=== PATIENT | female | born 1950 | race Caucasian/White ===

== ENCOUNTER 2016-07-27 21:12 | Emergency (ER) | payer MEDICARE ==
[~2016-07-27] VITALS: Ht 167.6 cm; Wt 59.0 kg
[~2016-07-27 21:12] MED LIST: DAYPRO600 M1 PO; SKELAXIN800 MG PO; VICODIN 500 MG-1 TAB PO
[2016-07-27] MEDS ORDERED: ZITHROMAX250 MG PO (22:58)
[2016-07-27] MEDS ORDERED: MEDROL DOSEPAK4 MG PO (22:58)
== END 2016-07-27 23:02 | disposition home or self-care (01) ==
LOC: ED 21:12
DX: J20.9 Acute bronchitis, unspecified (principal); F17.200 Nicotine dependence, unspecified, uncomplicated

== ENCOUNTER 2019-07-07 08:07 | Emergency (ER) | payer MEDICARE ==
[~2019-07-07] VITALS: Ht 162.5 cm; Wt 72.6 kg
[~2019-07-07 08:07] MED LIST changes: +MEDROL DOSEPAK4 MG PO; +MUCINEX ER600 MG PO; +NICODERM T; +PREDNISONE10 MG PO; +PROAIR HFA8.5 GM INH; +ZITHROMAX250 MG PO
[2019-07-07 08:47] LABS: BASO # 0.1 10*3/uL (0.0-0.1); BASO % 0.8 % (0.0-1.0); EOS # 0.2 10*3/uL (0.0-0.4); EOS % 2.2 % (1.0-4.0); HEMATOCRIT 40.5 % (37.0-47.0); HEMOGLOBIN 13.1 g/dl (12.0-16.0); LYMPH # 2.1 10*3/uL (1.3-4.4); LYMPH % 23.8 % (27.0-41.0); MEAN CELL VOLUME 91.6 fl (81.0-99.0); MEAN CORPUSCULAR HGB 29.6 pg (27.0-31.0); MEAN CORPUSCULAR HGB CONC 32.3 g/dl (33.0-37.0); MEAN PLATELET VOLUME 9.1 fl (9.6-12.3); MONO # 0.7 10*3/uL (0.1-1.0); MONO % 7.7 % (3.0-9.0); NEUT # 5.8 10*3/uL (2.3-7.9); NEUT % 64.2 % (47.0-73.0); PLATELET COUNT AUTOMATED 361 10*3/uL (130-400); RED BLOOD COUNT 4.42 10*6/uL (4.10-5.10); RED CELL DISTRI WIDTH 12.2 % (0-14.5)
[2019-07-07 09:04] LABS: ALBUMIN 3.6 gm/dl (3.1-4.5); ALKALINE PHOSPHATASE 43 U/L (45-117); BUN 24 mg/dl (7-24); CHLORIDE 104 mmol/L (98-107); CREATININE 1.06 mg/dL (0.55-1.02); POTASSIUM 3.9 mmol/L (3.5-5.1); SGOT/AST 18 IU/L (3-35); SGPT/ALT 46 U/L (12-78); SODIUM 137 mmol/L (136-145); TOTAL PROTEIN 7.2 gm/dL (6.4-8.2)
[2019-07-07 09:06] LABS: TROPONIN I < 0.015 ng/ml (<0.045)
== END 2019-07-07 10:37 | disposition home or self-care (01) ==
LOC: ED 08:07
PROVIDERS: Family Medicine
DX: E86.0 Dehydration (principal); R42 Dizziness and giddiness; F17.210 Nicotine dependence, cigarettes, uncomplicated

== ENCOUNTER 2019-10-30 21:16 | Emergency (ER) | payer OTHER ==
[~2019-10-30] VITALS: Ht 162.5 cm; Wt 68.0 kg
[2019-10-30 22:53] LABS: BASO # 0.1 10*3/uL (0.0-0.1); BASO % 0.6 % (0.0-1.0); EOS # 0.2 10*3/uL (0.0-0.4); EOS % 2.2 % (1.0-4.0); HEMATOCRIT 36.4 % (37.0-47.0); LYMPH # 2.2 10*3/uL (1.3-4.4); LYMPH % 26.5 % (27.0-41.0); MEAN CELL VOLUME 89.4 fl (81.0-99.0); MEAN CORPUSCULAR HGB 29.5 pg (27.0-31.0); MEAN PLATELET VOLUME 8.9 fl (9.6-12.3); MONO # 0.7 10*3/uL (0.1-1.0); MONO % 8.1 % (3.0-9.0); NEUT % 61.6 % (47.0-73.0); PLATELET COUNT AUTOMATED 352 10*3/uL (130-400); RED BLOOD COUNT 4.07 10*6/uL (4.10-5.10); RED CELL DISTRI WIDTH 12.4 % (0-14.5); WHITE BLOOD COUNT 8.1 10*3/uL (4.8-10.8)
[2019-10-30 23:10] LABS: ALBUMIN 3.3 gm/dl (3.1-4.5); ALKALINE PHOSPHATASE 45 U/L (45-117); BUN 19 mg/dl (7-24); CHLORIDE 108 mmol/L (98-107); CREATININE 0.93 mg/dL (0.55-1.02); POTASSIUM 3.9 mmol/L (3.5-5.1); SGOT/AST 16 IU/L (3-35); SGPT/ALT 37 U/L (12-78); SODIUM 141 mmol/L (136-145); TOTAL PROTEIN 6.8 gm/dL (6.4-8.2)
== END 2019-10-30 23:51 | disposition home or self-care (01) ==
LOC: ED 21:16
PROVIDERS: Nurse Practitioner Family
DX: R60.0 Localized edema (principal); F17.200 Nicotine dependence, unspecified, uncomplicated; Z79.899 Other long term (current) drug therapy

== ENCOUNTER → 2019-11-12 | Outpatient (CLI) | payer OTHER | END | disposition home or self-care (01) | LOC: US 10:08 | DX: I70.202 Unspecified atherosclerosis of native arteries of extremities, left leg (principal); I77.1 Stricture of artery ==

== ENCOUNTER 2020-05-13 09:09 | Emergency (ER) | payer OTHER ==
[~2020-05-13] VITALS: Ht 167.6 cm; Wt 68.0 kg
[2020-05-13] MEDS ORDERED: ASPIRIN ADULT L81 M1 PO (09:31)
[2020-05-13] MEDS ORDERED: HYDROCODONE-AC1 EAC1 PO (13:15)
[2020-05-16] MEDS ORDERED: AMLODIPINE BESY10 MG PO (11:02)
[2020-05-16] MEDS ORDERED: LISINOPRIL-HCT1 EACH PO (11:03)
[2020-05-17] MEDS ORDERED: HYDROCODONE-AC1 EAC1 PO (11:59)
== END 2020-05-13 14:02 | disposition home or self-care (01) ==
LOC: ED 09:09
DX: S52.272A Monteggia's fracture of left ulna, initial encounter for closed fracture (principal); S52.122A Displaced fracture of head of left radius, initial encounter for closed fracture; S42.452A Displaced fracture of lateral condyle of left humerus, initial encounter for closed fracture; I10 Essential (primary) hypertension; F17.200 Nicotine dependence, unspecified, uncomplicated; Z20.822 Contact with and (suspected) exposure to COVID-19; Z79.82 Long term (current) use of aspirin; Z90.711 Acquired absence of uterus with remaining cervical stump; W18.09XA Striking against other object with subsequent fall, initial encounter; Y93.89 Activity, other specified; Y92.098 Other place in other non-institutional residence as the place of occurrence of the external cause; Y99.8 Other external cause status

== ENCOUNTER → 2020-05-17 | Day surgery (SDC) | payer OTHER ==
[2020-05-16 10:54] LABS: BASO # 0.1 10*3/uL (0.0-0.1); BASO % 0.8 % (0.0-1.0); EOS # 0.2 10*3/uL (0.0-0.4); EOS % 1.8 % (1.0-4.0); HEMATOCRIT 42.6 % (37.0-47.0); LYMPH # 2.4 10*3/uL (1.3-4.4); LYMPH % 21.6 % (27.0-41.0); MEAN CELL VOLUME 89.3 fl (81.0-99.0); MEAN CORPUSCULAR HGB 28.7 pg (27.0-31.0); MEAN CORPUSCULAR HGB CONC 32.2 g/dl (33.0-37.0); MEAN PLATELET VOLUME 9.2 fl (9.6-12.3); MONO # 0.8 10*3/uL (0.1-1.0); MONO % 7.1 % (3.0-9.0); NEUT # 7.6 10*3/uL (2.3-7.9); NEUT % 67.5 % (47.0-73.0); PLATELET COUNT AUTOMATED 439 10*3/uL (130-400); RED BLOOD COUNT 4.77 10*6/uL (4.10-5.10); RED CELL DISTRI WIDTH 12.5 % (0-14.5); WHITE BLOOD COUNT 11.3 10*3/uL (4.8-10.8)
[2020-05-16 11:02] VITALS: BP 123/49
[2020-05-16 11:18] LABS: BUN 21 mg/dl (7-24); CHLORIDE 102 mmol/L (98-107); CREATININE 0.73 mg/dL (0.55-1.02); POTASSIUM 4.2 mmol/L (3.5-5.1); SODIUM 137 mmol/L (136-145)
[~2020-05-17] VITALS: Ht 162.5 cm; Wt 70.8 kg
[2020-05-17] VITALS (7 sets, daily range): BP systolic 113–148; BP diastolic 43–54
[~2020-05-17] MED LIST changes: +AMLODIPINE BESY10 MG PO; +ASPIRIN ADULT L81 M1 PO; +HYDROCODONE-AC1 EAC1 PO; +LISINOPRIL-HCT1 EACH PO
== END ==
LOC: SDC 05-16 10:11
PROVIDERS: ATTEND Orthopaedic Surgery
DX: S52.272A Monteggia's fracture of left ulna, initial encounter for closed fracture (principal); S52.122A Displaced fracture of head of left radius, initial encounter for closed fracture; I10 Essential (primary) hypertension; Z90.710 Acquired absence of both cervix and uterus; W01.0XXA Fall on same level from slipping, tripping and stumbling without subsequent striking against object, initial encounter; Y93.89 Activity, other specified; Y92.89 Other specified places as the place of occurrence of the external cause; Y99.8 Other external cause status

== ENCOUNTER → 2020-05-30 | Outpatient (CLI) | payer OTHER | END | disposition home or self-care (01) | LOC: ORTHO 00:21 | PROVIDERS: ATTEND Orthopaedic Surgery | DX: S52.272D Monteggia's fracture of left ulna, subsequent encounter for closed fracture with routine healing (principal); X58.XXXD Exposure to other specified factors, subsequent encounter ==

== ENCOUNTER → 2020-06-07 | Outpatient (CLI) | payer OTHER | END | disposition home or self-care (01) | LOC: ORTHO 11:32 | PROVIDERS: ATTEND Orthopaedic Surgery | DX: S52.272D Monteggia's fracture of left ulna, subsequent encounter for closed fracture with routine healing (principal); X58.XXXD Exposure to other specified factors, subsequent encounter ==

== ENCOUNTER → 2020-06-29 | Outpatient (CLI) | payer OTHER | END | disposition home or self-care (01) | LOC: ORTHO 01:20 | PROVIDERS: ATTEND Orthopaedic Surgery | DX: S52.122D Displaced fracture of head of left radius, subsequent encounter for closed fracture with routine healing (principal); S52.272D Monteggia's fracture of left ulna, subsequent encounter for closed fracture with routine healing; X58.XXXD Exposure to other specified factors, subsequent encounter ==

== ENCOUNTER 2020-10-22 17:06 | Emergency (ER) | payer OTHER ==
[~2020-10-22] VITALS: Ht 167.6 cm; Wt 70.3 kg
[2020-10-22] MEDS ORDERED: PREDNISONE20 M1 PO (19:03)
[2020-10-22] MEDS ORDERED: ZITHROMAX250 MG PO (19:03)
== END 2020-10-22 19:10 | disposition home or self-care (01) ==
LOC: ED 17:06
DX: J40 Bronchitis, not specified as acute or chronic (principal); Z20.822 Contact with and (suspected) exposure to COVID-19; F17.200 Nicotine dependence, unspecified, uncomplicated; Z79.82 Long term (current) use of aspirin; Z79.899 Other long term (current) drug therapy; Z90.711 Acquired absence of uterus with remaining cervical stump

== ENCOUNTER → 2021-06-05 | Outpatient (CLI) | payer OTHER ==
[~2021-06-05] MED LIST changes: +PREDNISONE20 M1 PO
== END | disposition home or self-care (01) ==
LOC: RAD 11:49
PROVIDERS: ATTEND Internal Medicine
DX: M47.817 Spondylosis without myelopathy or radiculopathy, lumbosacral region (principal); M48.07 Spinal stenosis, lumbosacral region; I10 Essential (primary) hypertension

== ENCOUNTER 2021-09-26 10:12 | Inpatient (IN) | payer OTHER ==
[~2021-09-26] VITALS: Ht 157.4 cm; Wt 73.6 kg
[2021-09-26 10:15] VITALS: BP 120/80
[2021-09-26 10:48] LABS: BASO # 0.1 10*3/uL (0.0-0.1); BASO % 0.7 % (0.0-1.0); EOS # 0.1 10*3/uL (0.0-0.4); EOS % 1.5 % (1.0-4.0); HEMATOCRIT 40.2 % (37.0-47.0); LYMPH # 1.6 10*3/uL (1.3-4.4); LYMPH % 18.6 % (27.0-41.0); MEAN CELL VOLUME 88.2 fl (81.0-99.0); MEAN CORPUSCULAR HGB 29.4 pg (27.0-31.0); MEAN CORPUSCULAR HGB CONC 33.3 g/dl (33.0-37.0); MEAN PLATELET VOLUME 9.1 fl (9.6-12.3); MONO # 0.5 10*3/uL (0.1-1.0); MONO % 6.2 % (3.0-9.0); NEUT % 71.3 % (47.0-73.0); PLATELET COUNT AUTOMATED 370 10*3/uL (130-400); RED BLOOD COUNT 4.56 10*6/uL (4.10-5.10); WHITE BLOOD COUNT 8.4 10*3/uL (4.8-10.8)
[2021-09-26 10:58] LABS: ACT PARTIAL THROMBO TIME 24.3 SECONDS (20.0-32.1)
[2021-09-26 11:09] LABS: BUN 22 mg/dl (7-24); CHLORIDE 106 mmol/L (98-107); CREATININE 0.62 mg/dL (0.55-1.02); LIPASE 174 U/L (73-393); POTASSIUM 3.7 mmol/L (3.5-5.1); SGOT/AST 15 IU/L (3-35); SODIUM 138 mmol/L (136-145); TOTAL PROTEIN 6.9 gm/dL (6.4-8.2)
[2021-09-26 11:11] LABS: ALKALINE PHOSPHATASE 39 U/L (45-117); SGPT/ALT 39 U/L (12-78)
[2021-09-26 12:05] VITALS: BP 120/78
[2021-09-26 14:00] VITALS: BP 120/74
[2021-09-26 16:00] VITALS: BP 143/52
[2021-09-26 16:10] VITALS: BP 143/57
[2021-09-26 20:00] VITALS: BP 121/43
[2021-09-27] VITALS: BP 118/49
[2021-09-27 08:00] VITALS: BP 140/60
[2021-09-27 12:00] VITALS: BP 105/48; BP 116/43
[2021-09-27 16:00] VITALS: BP 128/47
[2021-09-27 20:00] VITALS: BP 126/52
[2021-09-28] VITALS: BP 99/42
[2021-09-28] MEDS ORDERED: PREDNISONE5 MG PO (07:22)
[2021-09-28] MEDS ORDERED: MECLIZINE HCL25 M2 PO (07:22)
[2021-09-28 08:00] VITALS: BP 132/52
== END 2021-09-28 14:30 | disposition home or self-care (01) | DRG 149 ==
LOC: ED 10:12 → EDHOLD 14:54 → 4E 14:54
PROVIDERS: Emergency Medicine; ADMIT Internal Medicine; ATTEND Internal Medicine
DX: H81.10 Benign paroxysmal vertigo, unspecified ear (principal); J44.1 Chronic obstructive pulmonary disease with (acute) exacerbation; I10 Essential (primary) hypertension; Z90.710 Acquired absence of both cervix and uterus; F17.210 Nicotine dependence, cigarettes, uncomplicated; Z71.6 Tobacco abuse counseling

== ENCOUNTER → 2021-10-18 | Outpatient (CLI) | payer OTHER ==
[~2021-10-18] MED LIST changes: +MECLIZINE HCL25 M2 PO; +PREDNISONE5 MG PO
== END | disposition home or self-care (01) ==
LOC: US 10:00
PROVIDERS: ATTEND Internal Medicine
DX: E04.2 Nontoxic multinodular goiter (principal)

== ENCOUNTER → 2021-11-09 | Outpatient (CLI) | payer OTHER ==
[2021-11-09 10:37] LABS: FREE T4 0.84 ng/dl (0.76-1.46)
[2021-11-09 10:42] LABS: THYROID STIM HORMONE (HS) 0.263 uIU/ml (0.358-4.75)
== END | disposition home or self-care (01) ==
LOC: MAMMO 10-23 09:00 → RAD 10-23 09:30 → LAB 08:32 → MAMMO 09:00
PROVIDERS: ATTEND Internal Medicine
DX: Z12.31 Encounter for screening mammogram for malignant neoplasm of breast (principal); Z13.820 Encounter for screening for osteoporosis; Z11.59 Encounter for screening for other viral diseases; M85.88 Other specified disorders of bone density and structure, other site; R42 Dizziness and giddiness; E04.1 Nontoxic single thyroid nodule

== ENCOUNTER → 2021-11-22 | Outpatient (CLI) | payer OTHER ==
[2021-11-22 11:00] LABS: ACT PARTIAL THROMBO TIME 25.7 SECONDS (20.0-32.1); INTERNATIONAL NORM RATIO 0.9 (2.0-3.5)
== END | disposition home or self-care (01) ==
LOC: SDC 00:46 → EDSTATUS 11:00 → SDC 11:00
PROVIDERS: ATTEND Internal Medicine
DX: E04.2 Nontoxic multinodular goiter (principal); R19.5 Other fecal abnormalities; E78.2 Mixed hyperlipidemia; I10 Essential (primary) hypertension; E55.9 Vitamin D deficiency, unspecified; I73.9 Peripheral vascular disease, unspecified; M46.1 Sacroiliitis, not elsewhere classified; Z79.82 Long term (current) use of aspirin; Z79.01 Long term (current) use of anticoagulants; Z79.899 Other long term (current) drug therapy

== ENCOUNTER 2025-02-05 16:00 | Emergency (ER) | payer OTHER ==
[~2025-02-05] VITALS: Ht 162.5 cm; Wt 72.6 kg
[~2025-02-05 16:00] MED LIST changes: +ATORVASTATIN CA40 M1 PO; +CIPRO500 MG PO
[2025-02-05] MEDS ORDERED: Lidocaine Hydrochloride 2% 10 ML AMP SC ONE (16:20)
[2025-02-05] MEDS ORDERED: Bacitracin Zinc 14 GM TUBE T ONE (16:20)
[2025-02-05] MEDS ORDERED: Tdap Vaccine 0.5 ML SYR (Adult Vaccine) IM ONE (16:20)
[2025-02-05] MEDS ORDERED: CEPHALEXIN500 M1 PO (17:13)
== END 2025-02-05 17:24 | disposition home or self-care (01) ==
LOC: ED 16:00
DX: S61.212A Laceration without foreign body of right middle finger without damage to nail, initial encounter (principal); I10 Essential (primary) hypertension; F17.210 Nicotine dependence, cigarettes, uncomplicated; Z90.710 Acquired absence of both cervix and uterus; W45.8XXA Other foreign body or object entering through skin, initial encounter; Y93.89 Activity, other specified; Y92.89 Other specified places as the place of occurrence of the external cause; Y99.8 Other external cause status